=== PATIENT | male | born 1985 | race Caucasian/White ===

== ENCOUNTER 2016-08-29 11:37 | Emergency (ER) | payer OTHER | END 2016-08-29 14:07 | disposition home or self-care (01) | LOC: FER 11:37 | DX: J20.9 Acute bronchitis, unspecified (principal); F17.210 Nicotine dependence, cigarettes, uncomplicated | CPT/HCPCS: 71020; 87450; 87804; 87899; 94640; 94760 ==

== ENCOUNTER 2021-11-05 17:57 | Emergency (ER) | payer OTHER ==
[~2021-11-05 17:57] MED LIST: ALCOH-WIPE1 EACH XX; FENOFIBRATE67 MG PO; HUMULIN R100 UNIT/1 SQ; LEVEMIR VI100 UNITS/ SC; METFORMIN HCL500 MG PO; NAPROXEN500 MG PO; [UNRECOGNIZED DRUG - OTHER] XX
== END 2021-11-05 18:36 | disposition left against medical advice (07) ==
LOC: FER 17:57
DX: Z53.21 Procedure and treatment not carried out due to patient leaving prior to being seen by health care provider (principal)